=== PATIENT | male | born 1935 | race Two or more races ===

== ENCOUNTER 2018-06-24 15:09 | Outpatient (CLI) | payer OTHER | END 2018-06-24 15:19 | disposition home or self-care (01) | LOC: RAD 15:09 | DX: K64.8 Other hemorrhoids (principal); K62.2 Anal prolapse; R10.2 Pelvic and perineal pain; R19.4 Change in bowel habit ==

== ENCOUNTER 2018-07-09 10:12 | Outpatient (CLI) | payer OTHER | END 2018-07-09 10:35 | disposition home or self-care (01) | LOC: TOM 10:12 | DX: K64.8 Other hemorrhoids (principal); K62.2 Anal prolapse; R10.2 Pelvic and perineal pain; R19.4 Change in bowel habit ==

== ENCOUNTER 2018-07-12 17:06 | Inpatient (IN) | payer OTHER ==
[~2018-07-12] VITALS: Ht 167.6 cm; Wt 74.8 kg
== END 2018-08-14 11:56 | disposition home or self-care (01) | DRG 166 ==
LOC: ER 17:06 → SEC-K 07-13 09:47 → SURH 07-13 09:47 → MEDI 07-13 15:21 → SURH 07-13 16:26 → SURG 07-19 08:18 → MEDI 07-19 09:17
PROVIDERS: ADMIT Internal Medicine Cardiovascular Disease
PROC: CW1N1ZZ Planar Nuclear Medicine Imaging of Whole Body using Technetium 99m (Tc-99m) (ICD-10-PCS; 2018-07-13)
PROC: 0W9930Z Drainage of Right Pleural Cavity with Drainage Device, Percutaneous Approach (ICD-10-PCS; principal; 2018-07-14)
PROC: 0W9930Z Drainage of Right Pleural Cavity with Drainage Device, Percutaneous Approach (ICD-10-PCS; 2018-07-18)
PROC: 4A033R1 Measurement of Arterial Saturation, Peripheral, Percutaneous Approach (ICD-10-PCS; 2018-08-03)
PROC: BW28ZZZ Computerized Tomography (CT Scan) of Head (ICD-10-PCS; 2018-08-03)
PROC: BB24ZZZ Computerized Tomography (CT Scan) of Bilateral Lungs (ICD-10-PCS; 2018-08-03)
PROC: 0JB70ZZ Excision of Back Subcutaneous Tissue and Fascia, Open Approach (ICD-10-PCS; 2018-08-11)
PROC: 0JB70ZZ Excision of Back Subcutaneous Tissue and Fascia, Open Approach (ICD-10-PCS; 2018-08-13)
DX: J93.83 Other pneumothorax (principal); J16.8 Pneumonia due to other specified infectious organisms; L89.153 Pressure ulcer of sacral region, stage 3; A41.89 Other specified sepsis; C78.2 Secondary malignant neoplasm of pleura; J91.0 Malignant pleural effusion; C79.51 Secondary malignant neoplasm of bone; C78.02 Secondary malignant neoplasm of left lung; C78.01 Secondary malignant neoplasm of right lung; R65.10 Systemic inflammatory response syndrome (SIRS) of non-infectious origin without acute organ dysfunction; Z74.01 Bed confinement status; B96.1 Klebsiella pneumoniae [K. pneumoniae] as the cause of diseases classified elsewhere